=== PATIENT | female | born 1990 | race Caucasian/White ===

== ENCOUNTER 2019-02-28 21:07 | Emergency (ER) | payer SELFPAY ==
[~2019-02-28] VITALS: Ht 162.6 cm; Wt 73.0 kg
[2019-02-28 22:09] VITALS: BP 121/54
[2019-03-01] MEDS ORDERED: LORAZEPAM 1MG TABLET PO ONE (00:45)
[2019-03-01 00:47] LABS: CLARITY URINE CLEAR (CLEAR); COLOR URINE YELLOW (YELLOW); KETONES URINE NEGATIVE (NEGATIVE); LEUKOCYTE ESTERASE URINE NEGATIVE (NEGATIVE); NITRITE URINE NEGATIVE (NEGATIVE); OCCULT BLOOD URINE NEGATIVE (NEGATIVE); PH URINE 6.5 (4.5-8.0); PROTEIN URINE NEGATIVE (NEGATIVE); SPECIFIC GRAVITY URINE 1.002 (1.005-1.030); UROBILINOGEN URINE 0.2 E.U./dL (0.2-1.0)
== END 2019-03-01 02:20 | disposition left against medical advice (07) ==
LOC: ER 21:07
DX: F41.9 Anxiety disorder, unspecified (principal); Z59.0 Homelessness
CPT/HCPCS: 99283; 99284